=== PATIENT | female | born 1985 | race Caucasian/White ===

== ENCOUNTER 2019-12-12 15:46 | Emergency (ER) | payer OTHER ==
[2019-12-12 15:55] VITALS: BMI 25.6
--- NOTE | 2019-12-12 16:04 | PDOC ---
History of Present Illness - General Chief Complaint: Pain Stated Complaint: ABD PAIN Time Seen by Provider: 12/12/19 16:04 History Source: Patient Exam Limitations: No Limitations - History of Present Illness Initial Comments: 12/12/19 16:23 34y previously healthy F presenting w 1d sudden onset intermittent mild RLQ and R flank pain, pain w urination, nausea/vomiting, diarrhea starting yesterday morning while resting. Denies fever, chest pain, SOB, cough, vaginal bleeding. Did not take any pain meds. Past History - Past Medical History Allergies/Adverse Reactions: Allergies Allergy/AdvReac Type Severity Reaction Status Date / Time No Known Drug Allergies Allergy Verified 12/12/19 15:47 Home Medications: Ambulatory Orders Vitamins (Sjr) - 1 tab PO DAILY tablet 09/21/15 Acetaminophen [Tylenol .Regular Strength -] 650 mg PO Q4H PRN #0 tablet Ibuprofen [Motrin -] 600 mg PO Q6H PRN #30 tablet 11/17/15 Cephalexin Monohydrate [Keflex -] 500 mg PO Q6H 14 Days #56 capsule 12/12/19 Ondansetron [Zofran *Odt*] 4 mg SL TID #6 od.tablet 12/12/19 Anemia: No Asthma: No Cancer: No Cardiac Disorders: No CVA: No COPD: No CHF: No Dementia: No Diabetes: No GI Disorders: No Disorders: No HTN: No Hypercholesterolemia: No Liver Disease: No Seizures: No Thyroid Disease: No - Reproductive History (#): 4 Para: 3 Therapeutic (s) & number: No Spontaneous : 0 - Psycho Social/Smoking Cessation Hx Smoking History: Never smoked Have you smoked in the past 12 months: No Hx Alcohol Use: No Drug/Substance Use Hx: No Substance Use Type: None Hx Substance Use Treatment: No Review of Systems - Review of Systems Constitutional: No: Chills, Fever HEENTM: No: Eye Pain, Nose Congestion Respiratory: No: Cough, Shortness of Breath Cardiac (ROS): No: Chest Pain, Palpitations ABD/GI: Yes: Diarrhea, Nausea, Vomiting. No: Abdominal Distended, Constipated : No: Burning, Dysuria, Testicular Pain Musculoskeletal: No: Back Pain, Joint Pain Integumentary: No: Bruising, Flushing Neurological: No: Headache, Seizure Psychiatric: No: Anxiety, Depression Endocrine: No: Intolerance to Cold, Intolerance to Heat Hematologic/Lymphatic: No: Anemia, Blood Clots *Physical Exam - Vital Signs Last Vital Signs Temp Pulse Resp BP Pulse Ox 99.1 F 105 H 16 128/74 99 12/12/19 15:47 12/12/19 15:47 12/12/19 15:47 12/12/19 15:47 12/12/19 15:47 - Physical Exam General Appearance: Yes: Nourished, Appropriately Dressed, Mild Distress HEENT: positive: EOMI, BURAK, Normal Voice, Hearing Grossly Normal. negative: Scleral Icterus (R), Scleral Icterus (L) Respiratory/Chest: positive: Lungs Clear, Normal Breath Sounds. negative: Chest Tender, Respiratory Distress Cardiovascular: positive: Regular Rhythm, Regular Rate, S1, S2. negative: Edema , Murmur Female Pelvic Exam: positive: normal external exam, cervical os closed, normal adnexa, normal size ovaries. negative: CMT, discharge, lesions, adnexal tenderness, vaginal bleeding Gastrointestinal/Abdominal: positive: Normal Bowel Sounds, Tender (mild tenderness RLQ, R flank), Flat, Soft. 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 negative: Sensory Deficit, Confused, Disoriented ED Treatment Course - LABORATORY CBC & Chemistry Diagram: 12/12/19 18:00 12/12/19 18:00 Medical Decision Making - Medical Decision Making 12/12/19 16:15 US - no anatomy, no ovarian cyst/torsion pelvic exam - no gross blood, closed cervical os, no cervical/adnexal tenderness CT A/P - no renal stone, heterogeneous liver +UTI w 3+ blood WBC 18 --- 34y previously healthy F presenting w 1d mild RLQ and R flank pain, pain w urination, nausea/vomiting, diarrhea d/t pyelonephritis. Low concern for (neg) vs ovarian torsion (neg) vs renal stone (neg on CT). Given zofran, tylenol, 1L NS, rocephin DC home w keflex, zofran, PCP f/u for heterogeneous liver. Discharge - Discharge Information Problems reviewed: Yes Clinical Impression/Diagnosis: Pyelonephritis Condition: Improved Disposition: HOME - Additional Discharge Information Prescriptions: Cephalexin Monohydrate [Keflex -] 500 mg PO Q6H 14 Days #56 capsule Ondansetron [Zofran *Odt*] 4 mg SL TID #6 od.tablet - Follow up/Referral Referrals: Calista Munguia MD [Primary Care Provider] - - Patient Discharge Instructions Patient Printed Discharge Instructions: DI for Kidney Infection Additional Instructions: Take the prescribed antibiotics as directed. Take Zofran if you are vomiting. Take tylenol or ibuprofen if you have pain Follow up with your doctor to evaluate your liver. --- [place] los antibiticos recetados segn las indicaciones. [place] Zofran si est vomitando. [place] tylenol o ibuprofeno si tiene dolor. Ramila un seguimiento con russ mdico para evaluar russ hgado. Print Language: MALAGASY - Post Discharge Activity
[2019-12-12] MEDS ORDERED: ACETAMINOPHEN 1000 MG/100 ML VIAL (NON FORMULARY) IVPB ONE (16:14)
[2019-12-12] MEDS ORDERED: ONDANSETRON 4 MG/2 ML VIAL IVPUSH ONE (16:14)
[2019-12-12] MEDS ORDERED: SODIUM CHLORIDE 0.9% 500 ML INFUS.BAG IV ONE (16:14)
[2019-12-12 17:02] LABS: EPI CELLS 8.3 /HPF (0-5/HPF); HYALINE CASTS 41 /lpf (0-8); PH,URINE 6.5 (5.0-8.0); URINE APPEARANCE CLOUDY; URINE BACTERIA >9000 /hpf (NEGATIVE); URINE BILIRUBIN NEGATIVE (NEGATIVE); URINE COLOR YELLOW; URINE GLUCOSE (UA) NEGATIVE (NEGATIVE); URINE KETONE NEGATIVE (NEGATIVE); URINE LEUK ESTERASE 3+ (NEGATIVE); URINE NITRITE POSITIVE (NEGATIVE); URINE PROTEIN 2+ (NEGATIVE); URINE RBC 84 /hpf (0-4); URINE UROBILINOGEN 0.2 mg/dL (0.2-1.0); URINE WBC 323 /hpf (0-5)
--- NOTE | 2019-12-12 17:07 | PDOC ---
Attending Attestation - Resident Resident Name: Rufino Ruano - ED Attending Attestation I have performed the following: I have examined & evaluated the patient, The case was reviewed & discussed with the resident, I agree w/resident's findings & plan - HPI HPI: 12/12/19 19:28 see resident hpi - Physicial Exam PE: 12/12/19 19:29 see resident exam - Medical Decision Making 12/12/19 19:29 34-year-old female with flank pain and dysuria Evaluation including pelvic ultrasound, CT scan and labs significant for urinary tract infection, suggestive of pyelonephritis Patient received Rocephin and IV fluid normal saline as well as Zofran and is feeling much better on reevaluation at 7 PM We will DC with remainder of p.o. course of Keflex with recommended outpatient follow-up
[2019-12-12] MEDS ORDERED: CEFTRIAXONE 1 GM in DEXTROSE 5%-WATER - 100 ML IVPB ONE (17:14)
[2019-12-12 18:23] LABS: BASO % 0.3 % (0-2.0); EOS % 0.1 % (0-4.5); HEMATOCRIT 39.4 % (32.4-45.2); HEMOGLOBIN 13.5 GM/dL (10.7-15.3); LYMPH % 14.3 % (8-40); MCH 32.4 pg (25.7-33.7); MCHC 34.3 g/dl (32.0-36.0); MEAN CELL VOLUME 94.5 fl (80-96); MEAN PLT VOLUME 7.9 fl (7.5-11.1); MONO % 6.3 % (3.8-10.2); PLATELET COUNT 306 K/MM3 (134-434); RBC 4.17 M/mm3 (3.60-5.2); RDW 12.2 % (11.6-15.6)
[2019-12-12 18:37] LABS: ALBUMIN 4.1 g/dl (3.4-5.0); BLOOD UREA NITROGEN 7.5 mg/dL (7-18); CALCIUM 9.4 mg/dL (8.5-10.1); CREATININE 0.7 mg/dL (0.55-1.3); POTASSIUM 4.3 mmol/L (3.5-5.1); TOT PROT 8.8 g/dl (6.4-8.2)
[2019-12-12] MEDS ORDERED: ACETAMINOPHEN INJECTION 100 ML IVPB ONE (19:30)
[2019-12-12] MEDS ORDERED: ONDANSETRON 4 MG/2 ML VIAL ONE (19:30)
[2019-12-12] MEDS ORDERED: CEFTRIAXONE 1 GM/50 ML BAG ONE (19:31)
[2019-12-12 21:02] VITALS: BP 106/72; PULSE 98; TEMP 99
== END 2019-12-12 21:02 | disposition home or self-care (01) ==
LOC: JER 15:46
PROC: 3E03329 Introduction of Other Anti-infective into Peripheral Vein, Percutaneous Approach (ICD-10-PCS; principal; 2019-12-12)
PROC: 3E033NZ Introduction of Analgesics, Hypnotics, Sedatives into Peripheral Vein, Percutaneous Approach (ICD-10-PCS; 2019-12-12)
PROC: 3E033GC Introduction of Other Therapeutic Substance into Peripheral Vein, Percutaneous Approach (ICD-10-PCS; 2019-12-12)
DX: N12 Tubulo-interstitial nephritis, not specified as acute or chronic (principal); N39.0 Urinary tract infection, site not specified; R31.9 Hematuria, unspecified
CPT/HCPCS: 36415; 74176-TC; 76830-TC; 80053; 81003; 84703; 85025; 87086; 87186; 96365; 96375; 99285-25; J0131

== ENCOUNTER 2022-03-13 10:14 | Emergency (ER) | payer OTHER ==
[2022-03-13 10:38] VITALS: BMI 24.7
[2022-03-13 12:49] LABS: URINE APPEARANCE CLEAR; URINE BILIRUBIN NEGATIVE (NEGATIVE); URINE COLOR YELLOW; URINE GLUCOSE (UA) NEGATIVE (NEGATIVE); URINE KETONE NEGATIVE (NEGATIVE); URINE LEUK ESTERASE NEGATIVE (NEGATIVE); URINE NITRITE NEGATIVE (NEGATIVE); URINE PROTEIN TRACE (NEGATIVE); URINE UROBILINOGEN 0.2 mg/dL (0.2-1.0)
[2022-03-13 12:52] LABS: HCG,QUALITATIVE URINE Negative
[2022-03-13 17:52] VITALS: BP 107/72; PULSE 79; TEMP 98.5
== END 2022-03-13 17:45 | disposition home or self-care (01) ==
LOC: JER 10:14
DX: N83.291 Other ovarian cyst, right side (principal)
CPT/HCPCS: 76830-TC; 81003; 84703; 87086; 99284-25